=== PATIENT | female | born 1995 | race Caucasian/White ===

== ENCOUNTER 2017-01-27 13:32 | Observation (INO) | payer OTHER ==
[~2017-01-27] VITALS: Ht 162.6 cm; Wt 47.8 kg
[~2017-01-27 13:32] MED LIST: ACET-1311 PO; CHOL1000 PO; CLC100X PO; HYDR-3785 PO; MAGNSUS5 PO; MULT-878 PO; NUTR-1197 PO; SALI0.6515; SIME80CH11 PO; [UNRECOGNIZED DRUG - OTHER] EXT; [UNRECOGNIZED DRUG - OTHER] PO; [UNRECOGNIZED DRUG - OTHER] PO
[2017-01-27] MEDS ORDERED: ZOLP5TAB6 PO (13:57)
[2017-01-27] MEDS ORDERED: LISD30CA4 PO (13:57)
[2017-01-27 14:14] LABS: BASO % 1.4 %; BASO ABS # 0.05 K/uL (0-0.2); COMPLETE YES; EOS % 1.4 %; HEMATOCRIT 38.1 % (37-47); IG% 0.3 %; LYMPH % 45.5 %; LYMPH ABS # 1.63 K/uL (1.2-3.4); MEAN CELL VOLUME 90.5 fL (80-100); MEAN CORPUSCULAR HEMOGLOBIN 28.7 pg (25-34); MEAN CORPUSCULAR HGB CONC 31.8 g/dl (32-36); MEAN PLATELET VOLUME 10.3 fL (7.4-10.4); MONO % 10.3 %; NEUT % 41.1 %; PLATELET COUNT 209 K/uL (130-400); RED BLOOD COUNT 4.21 M/uL (4.2-5.4); WHITE BLOOD COUNT 3.58 K/uL (4.8-10.8)
[2017-01-27 14:32] LABS: BUN/CREATININE RATIO 8.3 (10-20); CALCIUM 9.2 mg/dl (8.5-10.1); CREATININE 1.18 mg/dl (0.60-1.20); MAGNESIUM 2.3 mg/dl (1.8-2.4); POTASSIUM 2.7 mmol/L (3.5-5.1)
[2017-01-27] MEDS ORDERED: POTASSIUM CHLORIDE 20 MEQ TABCR PO STA (14:34)
[2017-01-27 14:42] LABS: THYROID STIMULATING HORMONE 1.56 uIu/ml (0.300-4.500)
[2017-01-27] MEDS ORDERED: POTASSIUM CHLORIDE 10 MEQ / 100ML WTR IV STA (14:53)
[2017-01-27] MEDS ORDERED: POTASSIUM CHLORIDE 10 MEQ TABCR PO STA (16:05)
--- NOTE | 2017-01-27 16:05 | EMERGENCY ROOM VISIT NOTE ---
History Report prepared by Brenton: Ronald Marrero Under the Supervision of: Dr. Shorty Wilson D.O. First contact with patient: 13:37 Chief Complaint: MENTAL HEALTH EVALUATION Stated Complaint: INVOLUNTARY COMMITTMENT History of Present Illness The patient is a 22 year old female who presents to the Emergency Room for a mental health evaluation. She has a history of borderline personality disorder, and multiple eating disorders. She states that she has had problems with anorexia as well as bulimia intermittently since she was 13. The patient was seen at the psych clinic on the [facility] last week and was referred to the ED with concerns for her safety. She has been admitted to an inpatient psychiatric care facilities multiple times in the past. She denies using laxatives or weight loss pills. The patient states that she currently weighs 93 pounds right now, but weighed in the upper 90's a few weeks ago. She denies diarrhea, fevers, or chills. She denies any suicidal ideation or hallucinations. The patient denies chance of . She states that she often doesn't eat because she is busy most of the day, but has been eating at night. Source of History: patient Quality: other (mental health evaluation) Associated Symptoms: No fevers, No chills, No diarrhea Review of Systems See HPI for pertinent positives & negatives. A total of 10 systems reviewed and were otherwise negative. Past Medical & Surgical Medical Problems: (1) Anorexia nervosa (2) Borderline personality disorder (3) Bulimia Family History No pertinent family history stated. Social History Smoking Status: Never Smoker Current/Historical Medications Scheduled Lisdexamfetamine Dimesylate (Vyvanse), 30 MG PO DAILY Zolpidem Tartrate (Zolpidem Tartrate), 5 MG PO HS Allergies Coded Allergies: No Known Allergies (Unverified , 01/27/17) Physical Exam Vital Signs Date Time Temp Pulse Resp B/P (MAP) Pulse Ox O2 Delivery O2 Flow Rate FiO2 01/27/17 15:25 54 16 104/81 99 01/27/17 13:35 37.0 65 18 113/83 95 Physical Exam GENERAL: Patient is awake, alert. Somewhat tearful and anxious appearing EYES: The conjunctivae are clear. The pupils are round and reactive. EARS, NOSE, MOUTH AND THROAT: The nose is without any evidence of any deformity. Mucous membranes are moist tongue is midline NECK: The neck is nontender and supple. RESPIRATORY: Normal respiratory effort is noted there is no evidence of wheezing rhonchi or rales CARDIOVASCULAR: Regular rate and rhythm noted there no murmurs rubs or gallops normal S1 normal S2 GASTROINTESTINAL: The abdomen is soft. Bowel sounds are present in all quadrants. Abdomen is nontender MUSCULOSKELETAL/EXTREMITIES: There is no evidence of gross deformity full range of motion is noted in the hips and shoulders SKIN: There is no obvious evidence of any rash. There are no petechiae, pallor or cyanosis noted. NEUROLOGIC: Patient is awake alert and oriented x3 strength is symmetric patellar reflexes are 2+ bilaterally PSYCH: Affect flat. Currently denying suicidal or homicidal ideation. Denies abusing laxatives or other medications to lose weight. Medical Decision & Procedures Laboratory Results 01/27/17 14:00 Red Blood Count 4.21, Mean Corpuscular Volume 90.5, Mean Corpuscular Hemoglobin 28.7, Mean Corpuscular Hemoglobin Concent 31.8, Mean Platelet Volume 10.3, Neutrophils (%) (Auto) 41.1, Lymphocytes (%) (Auto) 45.5, Monocytes (%) (Auto) 10.3, Eosinophils (%) (Auto) 1.4, Basophils (%) (Auto) 1.4, Neutrophils # (Auto ) 1.47, Lymphocytes # (Auto) 1.63, Monocytes # (Auto) 0.37, Eosinophils # (Auto ) 0.05, Basophils # (Auto) 0.05 01/27/17 14:00 Test 01/27/17 14:00 White Blood Count 3.58 K/uL (4.8-10.8) Red Blood Count 4.21 M/uL (4.2-5.4) Hemoglobin 12.1 g/dL (12.0-16.0) Hematocrit 38.1 % (37-47) Mean Corpuscular Volume 90.5 fL (80-100) Mean Corpuscular Hemoglobin 28.7 pg (25-34) Mean Corpuscular Hemoglobin Concent 31.8 g/dl (32-36) Platelet Count 209 K/uL (130-400) Mean Platelet Volume 10.3 fL (7.4-10.4) Neutrophils (%) (Auto) 41.1 % Lymphocytes (%) (Auto) 45.5 % Monocytes (%) (Auto) 10.3 % Eosinophils (%) (Auto) 1.4 % Basophils (%) (Auto) 1.4 % Neutrophils # (Auto) 1.47 K/uL (1.4-6.5) Lymphocytes # (Auto) 1.63 K/uL (1.2-3.4) Monocytes # (Auto) 0.37 K/uL (0.11-0.59) Eosinophils # (Auto) 0.05 K/uL (0-0.5) Basophils # (Auto) 0.05 K/uL (0-0.2) RDW Standard Deviation 44.5 fL (36.4-46.3) RDW Coefficient of Variation 13.5 % (11.5-14.5) Immature Granulocyte % (Auto) 0.3 % Immature Granulocyte # (Auto) 0.01 K/uL (0.00-0.02) Anion Gap 7.0 mmol/L (3-11) Est Creatinine Clear Calc Drug Dose 49.5 ml/min Estimated GFR () 75.3 Estimated GFR (Non- 65.0 BUN/Creatinine Ratio 8.3 (10-20) Calcium Level 9.2 mg/dl (8.5-10.1) Magnesium Level 2.3 mg/dl (1.8-2.4) Total Bilirubin 0.7 mg/dl (0.2-1) Direct Bilirubin 0.2 mg/dl (0-0.2) Aspartate Amino Transf (AST/SGOT) 7 U/L (15-37) Alanine Aminotransferase (ALT/SGPT) 19 U/L (12-78) Alkaline Phosphatase 34 U/L (45-117) Total Protein 6.0 gm/dl (6.4-8.2) Albumin 3.5 gm/dl (3.4-5.0) Thyroid Stimulating Hormone (TSH) 1.560 uIu/ml (0.300-4.500) Ethyl Alcohol mg/dL < 3.0 mg/dl (0-3) Laboratory results per my review. Medications Administered Medications (Trade) Dose Ordered Sig/Liban Route Start Time Stop Time Status Last Admin Dose Admin Potassium Chloride (Klor-Con Tab) 20 meq NOW STAT PO 01/27/17 14:34 01/27/17 14:35 DC 01/27/17 15:18 20 MEQ Potassium Chloride (Kcl 10 Meq / Wtr) 10 meq NOW STAT IV 01/27/17 14:53 01/27/17 14:55 DC 01/27/17 15:18 10 MEQ ECG Indication: other (eating disorder) Rate (beats per minute): 61 Rhythm: normal sinus Findings: no ectopy, other (Prominent U wave present) ED Course 1342: The patient was evaluated in room A6. A complete history and physical examination were performed. 1434: Ordered Klor-Con Tab 20 meq PO. 1453: Ordered KCl 10 Meq / Wtr 10 meq IV. 1505: Upon reevaluation, the patient is resting comfortably. I discussed results and treatment plan with her. She verbalizes agreement and understanding. I spoke with Dr. Arce of the [facility]. The patient will be evaluated for further management and care. Medical Decision Differential diagnosis: Etiologies such as mood disorder, infection, hypoglycemia, electrolyte abnormalities, cardiac sources, intracerebral event, toxicologic, neurologic, as well as others were entertained. Nursing notes reviewed. The patient's previous electronic medical records reviewed. The patient is a 22-year-old female who presented to the emergency department for a mental health evaluation. The patient presented with police for a 302 petition. The patient has a history of an eating disorder. She's been losing weight. There was significant concern for the patient's safety at home. The patient was not able to be medically cleared because of hypokalemia. She was treated with potassium replacement in the emergency department. She was evaluated by the mental health supportive employment case manager. I discussed her case with the on- call [facility] hospitalist. They've agreed to evaluate the patient in the emergency apartment for further management and disposition. Medication Reconcilliation Current Medication List: was personally reviewed by me Blood Pressure Screening Patient's blood pressure: Normal blood pressure Blood pressure disposition: Did not require urgent referral Consults Time Called: 1500 Consulting Physician: Dr. Arce -[facility] Returned Call: 1505 I discussed the patient's case with Dr. Arce. The patient will be evaluated for further management. Impression Primary Impression: Eating disorder Additional Impression: Hypokalemia Scribe Attestation The scribe's documentation has been prepared under my direction and personally reviewed by me in its entirety. I confirm that the note above accurately reflects all work, treatment, procedures, and medical decision making performed by me. Departure Information Dispostion Being Evaluated By Hospitalist Referrals No Doctor, Assigned (PCP) Patient Instructions My [facility] Problem Qualifiers
[2017-01-27] MEDS ORDERED: ZOLPIDEM TARTRATE 5 MG TAB PO PRN (16:15)
[2017-01-27] MEDS ORDERED: IV FLUIDS COMPLETED PRN (16:45)
[2017-01-27 16:58] LABS: URINE APPEARANCE TURBID (CLEAR); URINE BILIRUBIN NEG (NEG); URINE COLOR YELLOW; URINE EPITHELIAL CELL AUTO >30 /lpf (0-5); URINE NITRITE NEG (NEG); URINE PH >= 9.0 (4.5-7.5); URINE SPECIFIC GRAVITY 1.016 (1.000-1.030); UROBILINOGEN NEG (NEG)
[2017-01-27 17:03] LABS: MANUAL MICROSCOPIC REQUIRED? NO; REVIEW REQ? NO
[2017-01-27 17:05] LABS: SULFASALICYLIC ACID POS (NEG)
[2017-01-27] MEDS ORDERED: [UNRECOGNIZED DRUG - OTHER] SQ (17:11)
[2017-01-27] MEDS ORDERED: MULT-589 PO (17:12)
[2017-01-27] MEDS ORDERED: TUMS PO (17:12)
[2017-01-27 17:19] LABS: BENZODIAZEPINE, URINE NEG (NEG); COCAINE,URINE NEG (NEG); PHENCYCLIDINE, URINE NEG (NEG)
--- NOTE | 2017-01-27 17:24 | History and Physical ---
History & Physical Date & Time of Service: Jan 27, 2017 at 16:28 Chief Complaint: Involuntary Commitment, hypokalemia Primary Care Physician: No Doctor, Assigned History of Present Illness Source: patient, hospital records This patient is a 22-year-old female with a history of anorexia nervosa and bulimia as well as borderline personality disorder, who presents as an involuntary admission/302 by her outpatient psychiatrist for refusing to eat and intentional self-harm, although the patient denies suicidal ideation. She was found to be hypokalemic in the ER with a potassium of 2.7. I was asked to admit the patient for her electrolyte abnormalities and after medical clearance , she will need mental health placement for her eating disorder. The patient reports to me that she eats breakfast and dinner including meal replacement shakes, but thinks that she's just been studying to much and may have neglected eating. Review of her chart shows previous hospitalization here where it appears she was in a great deal of denial about her eating disorder. She has had numerous other inpatient hospitalizations for eating disorders in the past. Her blood work otherwise was fairly insignificant except for a mildly elevated bicarbonate at 34 and a low total protein 6.0. Her EKG showed a rightward axis but otherwise was normal. Her vital signs were normal. The patient denies any complaints at this time. She asks how long she will have to be here and how long a 302 forces her to be in the hospital. She denies binging and purging, denies syncope, chest pain, lightheadedness, abdominal pain, denies nausea/vomiting/diarrhea. No joint pains or skin rashes. 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) Immunizations History of Influenza Vaccine: No History of Tetanus Vaccine?: No History of Pneumococcal: No History of Hepatitis B Vaccine: Yes Allergies Coded Allergies: No Known Allergies (Unverified , 01/27/17) Home Medications Scheduled Calcium Carbonate (Tums), 500 MG PO DAILY Lisdexamfetamine Dimesylate (Vyvanse), 30 MG PO DAILY Multivitamins (Daily Laura), 1 TAB PO DAILY Zolpidem Tartrate (Zolpidem Tartrate), 5 MG PO HS Miscellaneous Medications [Implenon], 1 EA SQ Review of Systems Constitutional: No fever, No chills Eyes: No worsening of vision ENT: No problem reported Respiratory: No shortness of breath Cardiovascular: No chest pain, No problem reported (no syncope) Abdomen: No pain, No nausea, No vomiting, No diarrhea, No constipation (has regular formed brown stool on a daily basis) Musculoskeletal: No joint pain Genitourinary - Female: No dysuria, No urinary frequency, No urinary urgency, No , No problem reported Neurologic: No problem reported Psychiatric: No substance abuse, No problem reported Endocrine: No problem reported Hematologic / Lymphatic: No problem reported Integumentary: No rash, No new/changing skin lesions Allergic / Immunologic: No problem reported Physical Exam Vital Signs Date Time Temp Pulse Resp B/P (MAP) Pulse Ox O2 Delivery O2 Flow Rate FiO2 01/27/17 15:25 54 16 104/81 99 01/27/17 13:35 37.0 65 18 113/83 95 General Appearance: no apparent distress (sitting in bed, appears cachectic and pale), + thin Head: normocephalic (with temporal wasting), atraumatic Eyes: normal inspection, PERRL, EOMI, sclerae normal ENT: hearing grossly normal, pharynx normal Neck: supple, no adenopathy, thyroid normal, trachea midline Respiratory/Chest: lungs clear, normal breath sounds, no respiratory distress, no accessory muscle use Cardiovascular: regular rate, rhythm, no edema, no gallop, no JVD, no murmur, normal peripheral pulses Abdomen/GI: normal bowel sounds, non tender, soft, no organomegaly, no pulsatile mass Back: normal inspection Extremities/Musculoskelatal: normal inspection, no calf tenderness, normal capillary refill, no pedal edema, normal range of motion Neurologic/Psych: no motor/sensory deficits, alert, oriented x 3, + depressed affect Skin: warm/dry, no rash, + pallor Lymphatic: no adenopathy Diagnostics Laboratory Results Results Past 24 Hours Test 01/27/17 14:00 Range/Units White Blood Count 3.58 4.8-10.8 K/uL Red Blood Count 4.21 4.2-5.4 M/uL Hemoglobin 12.1 12.0-16.0 g/dL Hematocrit 38.1 37-47 % Mean Corpuscular Volume 90.5 80-100 fL Mean Corpuscular Hemoglobin 28.7 25-34 pg Mean Corpuscular Hemoglobin Concent 31.8 32-36 g/dl Platelet Count 209 130-400 K/uL Mean Platelet Volume 10.3 7.4-10.4 fL Neutrophils (%) (Auto) 41.1 % Lymphocytes (%) (Auto) 45.5 % Monocytes (%) (Auto) 10.3 % Eosinophils (%) (Auto) 1.4 % Basophils (%) (Auto) 1.4 % Neutrophils # (Auto) 1.47 1.4-6.5 K/uL Lymphocytes # (Auto) 1.63 1.2-3.4 K/uL Monocytes # (Auto) 0.37 0.11-0.59 K/uL Eosinophils # (Auto) 0.05 0-0.5 K/uL Basophils # (Auto) 0.05 0-0.2 K/uL RDW Standard Deviation 44.5 36.4-46.3 fL RDW Coefficient of Variation 13.5 11.5-14.5 % Immature Granulocyte % (Auto) 0.3 % Immature Granulocyte # (Auto) 0.01 0.00-0.02 K/uL Sodium Level 145 136-145 mmol/L Potassium Level 2.7 3.5-5.1 mmol/L Chloride Level 104 98-107 mmol/L Carbon Dioxide Level 34 21-32 mmol/L Anion Gap 7.0 3-11 mmol/L Blood Urea Nitrogen 10 7-18 mg/dl Creatinine 1.18 0.60-1.20 mg/dl Est Creatinine Clear Calc Drug Dose 49.5 ml/min Estimated GFR () 75.3 Estimated GFR (Non- 65.0 BUN/Creatinine Ratio 8.3 10-20 Random Glucose 74 70-99 mg/dl Calcium Level 9.2 8.5-10.1 mg/dl Magnesium Level 2.3 1.8-2.4 mg/dl Total Bilirubin 0.7 0.2-1 mg/dl Direct Bilirubin 0.2 0-0.2 mg/dl Aspartate Amino Transf (AST/SGOT) 7 15-37 U/L Alanine Aminotransferase (ALT/SGPT) 19 12-78 U/L Alkaline Phosphatase 34 45-117 U/L Total Protein 6.0 6.4-8.2 gm/dl Albumin 3.5 3.4-5.0 gm/dl Thyroid Stimulating Hormone (TSH) 1.560 0.300-4.500 uIu/ml Ethyl Alcohol mg/dL < 3.0 0-3 mg/dl EKG Sinus arrhythmia, rightward axis deviation, otherwise normal, QT is normal Impression Assessment and Plan This patient is a 22-year-old female with a history of anorexia nervosa and bulimia as well as borderline personality disorder, who presents as an involuntary admission/302 by her outpatient psychiatrist for refusing to eat and intentional self-harm, although the patient denies suicidal ideation. She was found to be hypokalemic in the ER with a potassium of 2.7. I was asked to admit the patient for her electrolyte abnormalities and after medical clearance , she will need mental health placement for her eating disorder. Hypokalemia/metabolic alkalosis-likely been secondary to poor oral intake and contraction alkalosis. The patient could be taking diuretics but is not admitting to this. -We'll admit to telemetry given severe electrolyte abnormalities -Was 30 given a total of 30 mEq of potassium chloride in the ER and a combination of oral and IV forms -Will give another 40 mEq potassium chloride by mouth 1 now -Check PRP in the morning as well as LFTs, phosphorus -Will need intensive psychiatric treatment to encourage her to eat -Continue multivitamin and Tums that she takes as an outpatient -Check vitamin D level Anorexia nervosa/bulimia/binge eating disorder/severe protein calorie malnutrition/underweight with BMI 16.0-was on Vyvanse as an outpatient, but reports that her psychiatrist was not going to prescribe it for her anymore and she ran out 2 days ago. She obviously is severely underweight and needs intensive psychiatric treatment. TSH is normal here -Psychiatric consultation appreciated for further disposition after medically stable -I will not prescribe her Vyvanse at this time -Can continue Ambien when necessary for insomnia Prophylaxis-ambulation and likely short stay Disposition-likely will be medically stable in the morning and can be discharged to behavioral health unit Level of Care Telemetry Resuscitation Status FULL RESUSCITATION VTE Prophylaxis VTE Risk Assessment Done? Y/N: Yes Risk Level: Low Given or contraindicated: Treatment not indicated
[2017-01-27 17:45] VITALS: BP 111/65; PULSE 60; TEMP 36.7; O2SAT 99; Ht 162.6 cm; Wt 47.8 kg
[2017-01-27 19:24] VITALS: BP 111/77; PULSE 64; TEMP 36.7; O2SAT 97
[2017-01-27 20:00] VITALS: O2SAT 97
[2017-01-27] MEDS: ACETAMINOPHEN 325 MG TAB PO PRN (23:31)
[2017-01-27 23:48] VITALS: BP 108/74; PULSE 63; TEMP 36.7; O2SAT 98
[2017-01-28] VITALS: O2SAT 97
[2017-01-28 03:42] VITALS: BP 104/70; PULSE 55; TEMP 36.7; O2SAT 97
[2017-01-28 04:00] VITALS: O2SAT 97
[2017-01-28 07:03] LABS: BUN/CREATININE RATIO 11.7 (10-20); CALCIUM 8.5 mg/dl (8.5-10.1); CREATININE 1.02 mg/dl (0.60-1.20)
[2017-01-28 07:09] LABS: PHOSPHORUS 3.1 mg/dl (2.5-4.9)
[2017-01-28 07:48] VITALS: BP 103/71; PULSE 59; TEMP 36.8; O2SAT 100
[2017-01-28] MEDS: ACETAMINOPHEN 325 MG TAB PO PRN (08:17)
[2017-01-28] MEDS ORDERED: MULTIVITAMIN TAB PO SCH (09:00)
[2017-01-28] MEDS ORDERED: ERGOCALCIFEROL 50,000 INTER.UNIT CAP PO SCH (09:00)
[2017-01-28] MEDS ORDERED: CHOLECALCIFEROL 1000 INTER.UNIT TAB PO SCH (09:00)
[2017-01-28] MEDS ORDERED: CALCIUM CARBONATE 500 MG CHEWABLE PO SCH (09:00)
[2017-01-28 11:48] VITALS: BP 107/69; PULSE 52; TEMP 36.9; O2SAT 96
[2017-01-28] MEDS ORDERED: ERGO500011 PO (13:37)
[2017-01-28] MEDS ORDERED: VTMD1000 PO (13:37)
[2017-01-28] MEDS ORDERED: TUMS PO (13:37)
--- NOTE | 2017-01-28 13:51 | Discharge Instructions ---
Discharge Instructions Date of Service Jan 28, 2017. Admission Reason for Admission: Hypokalemia Discharge Discharge Diagnosis / Problem: hypokalemia (low potassium) improved, vitamin D deficiency Discharge Goals Goal(s): Diagnostic testing, Therapeutic intervention Activity Recommendations Activity Limitations: resume your previous activity . Instructions / Follow-Up Instructions / Follow-Up hypokalemia -this was likely due to poor intake. even as school and studies get busy, try to keep up with eating/drinking to avoid falling behind nutritionally. obviously this can be an ongoing struggle for you - and in that respect continue to follow with your people in [place]. if you've found that you're not eating enough, it would also be reasonable to try utilizing protein shakes such as boost or ensure to at least get protein, vitamins and nutrients -we'd recommend having labwork (BMP) done in about 1-2 weeks and then periodically thereafter just to keep an eye on electrolytes and help catch problems before they become more severe vitamin D deficiency -your level was 15.9; while "normal" is still a bit debatable (probably 40, although some expert opinion would argue 30) - either way you need replacement to get your levels up to speed. because of where we are on the planet, you won' t really get viable vitamin D from sun exposure during late mid fall to the end of winter (the typical rule is from about to the beginning of june) we'll need to replace pretty aggressively -D2 (ergocalciferol) think of this as a "booster" dose - 50,000 units once a week for the next three months (then ongoing based on your follow up levels) -D3 (cholecalciferol) think of this as the "baseline" dose or what you'd use with daily metabolism. we'll have you taking 2000 units daily of this - i wrote a prescription although it's available over the counter -we'd want you to get repeat levels checked in about three months (maybe a week or two after your last dose of the D2) -the "hard science" on D replacement is to protect your bone health as you get older, although there is also soft science (correlation studies, although nothing that shows causation, between low vitamin D and infections, depression/ fatigue, and some cancers) Primary Care -it definitely would benefit you to have a good primary care doc in your corner - helping keep an eye on the whole you (including things like your potassium levels, D levels, bone health, and preventative care) as well as being able to coordinate with the eating disorder docs to maybe over time help make life easier for you! -locally, a few recommendations would be: [facility] ([phone]) Dr Meyer, Dr Mackenzie, Dr Rivas, Dr Ferrari (attending physicians) Dr Martel, Dr Ramos, Dr Franco, Dr Martin (resident physicians) [facility] ([phone]) Dr Riley (family medicine) Dr Schreiber (internal medicine) [facility] ([phone]) (independent, unaffiliated practice) Wander Borden or Priscilla Mccoy if you end up in [place] for [place], while the names will have changed , I would give consideration to establishing with one of the family medicine clinics affiliated with [facility] Current Hospital Diet Patient's current hospital diet: Regular Diet Discharge Diet Recommended Diet: Regular Diet Pending Studies Studies pending at discharge: no Medical Emergencies . Who to Call and When: Medical Emergencies: If at any time you feel your situation is an emergency, please call 911 immediately. . Non-Emergent Contact Non-Emergency issues call your: Primary Care Provider, Specialist . . "Provider Documentation" section prepared by Lorenzo Mosqueda. . VTE Core Measure Inpt VTE Proph given/why not?: Treatment not indicated
[2017-01-28 13:59] VITALS: BP 107/69; PULSE 52; TEMP 36.9; O2SAT 96
--- NOTE | 2017-01-28 14:30 | Psychiatric Consultation ---
Consultation Date of Consultation Jan 28, 2017. Identifying Data 22 year old single female. Seen together with her father and boyfriend at her request. Chief Complaint "Weight loss and low potassium". History of Present Illness Patient seen for psychiatric consultation on 12/15/2012 and this evaluation complements extensive consultation that was reviewed and incorporated into this evaluation. Patient had been followed at [facility] clinic and seen by BA Figueroa. Presented to [facility] ED with petitioning statement from Dr. Walsh ( supervising psychiatrist for Karen Whyte). Patient has had a significant weight loss over the past several weeks and 302 petition filed based on weight loss and refusal to attend eating disorders program. Patient had been prescribed Vyvanse to reduce binge eating and experienced significant weight loss so Vyvanse discontinued and patient admits to relapsing to purging by self induced vomiting once daily. Patient admitted medically and potassium corrected from 2.7 to 4.0 and patient complying with medical treatment. Patient denies feeling depressed. Denies any thoughts to harm herself or others and no psychotic symptoms present. Past Psychiatric History Prior Psych Hospitalizations: other ([facility] eating disorders program in her freshman year of high school.) Access to a Gun: No Suicide Attempts: No Allergies Allergies: Coded Allergies: No Known Allergies (Unverified , 01/27/17) Home Medications Scheduled Calcium Carbonate (Tums), 500 MG PO BID Cholecalciferol (Vitamin D3), 2,000 INTER.UNIT PO QAM Ergocalciferol (Vitamin D 74360 Unit), 50,000 INTERUNIT PO WK Lisdexamfetamine Dimesylate (Vyvanse), 30 MG PO DAILY Multivitamins (Daily Laura), 1 TAB PO DAILY Zolpidem Tartrate (Zolpidem Tartrate), 5 MG PO HS Miscellaneous Medications [Implenon], 1 EA SQ Family History History of Suicide: No History of Substance Abuse: No Psychiatric History: No Alcohol Use Alcohol Use In Past 12 Months: No Smoking Use Smoking Status: Never Smoker Personal History Education: started college Legal History: none Psychological Trauma History: Denies Hx Traumatic Event Examination Physical Examination A physical exam was performed in the ER prior to admission to the unit. I accept that physical as correct for the inpatient physical exam. Vital Signs Vital Signs Past 12 Hours Date Time Temp Pulse Resp B/P (MAP) Pulse Ox O2 Delivery O2 Flow Rate FiO2 01/28/17 12:00 Room Air 01/28/17 11:48 36.9 52 20 107/69 (82) 96 Room Air 01/28/17 08:00 Room Air 01/28/17 07:48 36.8 59 18 103/71 (82) 100 Room Air 01/28/17 04:00 97 Room Air 01/28/17 03:42 36.7 55 16 104/70 (81) 97 Laboratory Results Last 24 Hours Test 01/27/17 14:00 01/27/17 16:40 01/28/17 06:15 White Blood Count 3.58 K/uL Red Blood Count 4.21 M/uL Hemoglobin 12.1 g/dL Hematocrit 38.1 % Mean Corpuscular Volume 90.5 fL Mean Corpuscular Hemoglobin 28.7 pg Mean Corpuscular Hemoglobin Concent 31.8 g/dl Platelet Count 209 K/uL Mean Platelet Volume 10.3 fL Neutrophils (%) (Auto) 41.1 % Lymphocytes (%) (Auto) 45.5 % Monocytes (%) (Auto) 10.3 % Eosinophils (%) (Auto) 1.4 % Basophils (%) (Auto) 1.4 % Neutrophils # (Auto) 1.47 K/uL Lymphocytes # (Auto) 1.63 K/uL Monocytes # (Auto) 0.37 K/uL Eosinophils # (Auto) 0.05 K/uL Basophils # (Auto) 0.05 K/uL RDW Standard Deviation 44.5 fL RDW Coefficient of Variation 13.5 % Immature Granulocyte % (Auto) 0.3 % Immature Granulocyte # (Auto) 0.01 K/uL Sodium Level 145 mmol/L 141 mmol/L Potassium Level 2.7 mmol/L 4.0 mmol/L Chloride Level 104 mmol/L 106 mmol/L Carbon Dioxide Level 34 mmol/L 32 mmol/L Anion Gap 7.0 mmol/L 3.0 mmol/L Blood Urea Nitrogen 10 mg/dl 12 mg/dl Creatinine 1.18 mg/dl 1.02 mg/dl Est Creatinine Clear Calc Drug Dose 49.5 ml/min 64.7 ml/min Estimated GFR () 75.3 89.8 Estimated GFR (Non- 65.0 77.5 BUN/Creatinine Ratio 8.3 11.7 Random Glucose 74 mg/dl 84 mg/dl Calcium Level 9.2 mg/dl 8.5 mg/dl Magnesium Level 2.3 mg/dl 2.0 mg/dl Total Bilirubin 0.7 mg/dl 0.5 mg/dl Direct Bilirubin 0.2 mg/dl 0.1 mg/dl Aspartate Amino Transf (AST/SGOT) 7 U/L 9 U/L Alanine Aminotransferase (ALT/SGPT) 19 U/L 16 U/L Alkaline Phosphatase 34 U/L 30 U/L Total Protein 6.0 gm/dl 5.3 gm/dl Albumin 3.5 gm/dl 3.0 gm/dl Thyroid Stimulating Hormone (TSH) 1.560 uIu/ml Ethyl Alcohol mg/dL < 3.0 mg/dl Urine Color YELLOW Urine Appearance TURBID Urine pH >= 9.0 Urine Specific [place] 1.016 Urine Protein TRACE Urine Glucose (UA) NEG Urine Ketones NEG Urine Occult Blood NEG Urine Nitrite NEG Urine Bilirubin NEG Urine Urobilinogen NEG Urine Leukocyte Esterase NEG Urine WBC (Auto) 1-5 /hpf Urine RBC (Auto) 0-4 /hpf Urine Hyaline Casts (Auto) 1-5 /lpf Urine Epithelial Cells (Auto) >30 /lpf Urine Bacteria (Auto) NEG Urine Test NEG Urine Opiates Screen NEG Urine Methadone, Qualitative NEG Urine Barbiturates NEG Urine Phencyclidine (PCP) Level NEG Ur Amphetamine/Methamphetamine NEG MDMA (Ecstasy) Screen NEG Urine Benzodiazepines Screen NEG Urine Cocaine Metabolite NEG Urine Marijuana (THC) NEG Phosphorus Level 3.1 mg/dl 25-Hydroxy Vitamin D Total 15.9 ng/ml Mental Examination During interview pt is: alert and oriented Appearance: appropriately dressed Eye contact is: good Motor behavior is: no abnormal motor movements Speech: normal in rate, rhythm & volume Affect: mood congruent Thought process: goal directed Thought content: reality based without delusions Suicidal thought are: denied Homicidal thoughts are: denied Hallucinations: denies auditory, denies visual Cognition: memory grossly intact, attention grossly intact Intelligence estimated to be: consistent with level of education Insight: poor Judgement: poor Impression / Recommendations Impression 22 year old female presents with chronic history of binging and purging and recent discontinuation of Vyvanse due to significant weight loss which patient reports triggered recurrence of purging. Denies feeling depressed. Denies thoughts to harm self or others. Has complied with medical treatment and stabilization of hypokalemia. Risk Factors Assessment : Yes /single/: Yes Access to guns: No Health problems: Yes Mental Health Diagnoses: Yes Previous attempt: No Family history of suicide: No Previous psychiatric stay: Yes Smoker: No Protective Factors Assessment : No Responsible for young children: No Stable relationships: Yes Supportive family: Yes Recommendations Recommended to inpatient psychiatric care to patient to address eating disorder and to provide further assessment. She adamantly refuses to consider inpatient psychiatric hospitalization and is supported in her decision by her father and boyfriend. Reviewed with patient severity of her medical risk that she faced due to low potassium levels and potential risk of cardiac problems that could include . Patient has complied with medical care to address acute medical risk and refuses inpatient psychiatric level of care and wishes to return back to her outpatient care. Reviewed with patient that with significant weight loss she was not likely to be restarted on Vyvanse which she and father were requesting and recommended to her that inpatient level of care would allow for further stabilization of her eating disorder and coordination of care with her outpatient providers which she refused. Given stabilization of acute medical condition and reviewed patient's refusal of inpatient psychiatric care with medical attending - Dr. Lorenzo Mosqueda - assessed that 302 involuntary criteria to commit patient were not met and patient to be discharged against medical advice which included inpatient psychiatric care.
--- NOTE | 2017-01-28 16:55 | Discharge Summary ---
Discharge Summary Date of Service Jan 28, 2017. Discharge Summary Admission Date: Jan 27, 2017 at 16:28 Discharge Date: Jan 28, 2017 Discharge Disposition: Home Principal Diagnosis: hypokalemia, D deficiency, eating disorder Immunizations: Have You Had Influenza Vaccine: No History of Tetanus Vaccine?: No History of Pneumococcal: No History of Hepatitis B Vaccine: Yes Consultations: psych Medication Reconciliation New Medications: Cholecalciferol (Vitamin D3) 1,000 Inter.unit Tab 2000 INTER.UNIT PO QAM, #30 TAB Ergocalciferol (Vitamin D 99951 Unit) 50,000 Unit Cap 41198 INTERUNIT PO WK, #12 CAP take once a week for 12 weeks Changed Medications: Calcium Carbonate (Tums) 500 Mg Chew 500 MG PO BID for 30 Days (Changed from: DAILY) Continued Medications: Lisdexamfetamine Dimesylate (Vyvanse) 30 Mg Cap 30 MG PO DAILY, CAP Multivitamins (Daily Laura) 1 Tab Tab 1 TAB PO DAILY, #30 TAB Zolpidem Tartrate (Zolpidem Tartrate) 5 Mg Tab 5 MG PO HS, TAB [Implenon] () 1 1 EA SQ for 30 Days Inserted in arm 2016 Discharge Exam Physical Exam: General Appearance: no apparent distress Eyes: EOMI ENT: hearing grossly normal Neck: trachea midline Respiratory/Chest: no respiratory distress, no accessory muscle use Neurologic/Psychiatric: fan blade truer II-XII nml as tested, alert, normal mood/affect Skin: normal color Hospital Course admitted under 302 for eating disorder -- but without active suicidality psychiatry unable to keep 302 standing. pt not willing to stay inpatient psych. is willing for ongoing outpt f/u hypokalemia - repleted. stable now. encouraged keeping up w PO intake, encouraged establishing w PCP for continuity and ability to follow electrolytes closely vitamin D deficiency - supplement (drisdol weekly x 12, D3 2000IU daily) repeat levels in ~3 months stable for discharge, close outpt f/u, offered to establish w PCP locally for her, she declined but noted that she felt it was a good idea to do so, but preferred to do so on her own, give lists of names/numbers of physicians i have worked with that seem like they could be a good fit for her. ongoing f/u w [facility] /psych as outpt Total Time Spent: Greater than 30 minutes This includes examination of the patient, discharge planning, medication reconciliation, and communication with other providers. Discharge Instructions Please refer to the electronic Patient Visit Report (Discharge Instructions) for additional information.
== END 2017-01-28 14:17 | disposition home or self-care (01) ==
LOC: C.EDB 13:34 → C.2T 16:28 → ENRESERV 17:04
PROVIDERS: ADMIT Family Medicine; ATTEND Family Medicine
DX: E87.6 Hypokalemia (principal); E55.9 Vitamin D deficiency, unspecified; F50.9 Eating disorder, unspecified